=== PATIENT | male | born 1985 | race Caucasian/White ===

== ENCOUNTER 2016-10-16 10:22 | Emergency (ER) | payer SELFPAY ==
[~2016-10-16] VITALS: Ht 172.7 cm; Wt 82.0 kg
[2016-10-16 12:25] VITALS: BP 146/80
== END 2016-10-16 13:11 | disposition home or self-care (01) ==
LOC: ER 13:07
DX: T53.5X1A Toxic effect of chlorofluorocarbons, accidental (unintentional), initial encounter (principal); R42 Dizziness and giddiness; Y92.89 Other specified places as the place of occurrence of the external cause; R06.02 Shortness of breath
CPT/HCPCS: 71010; 99283; Z7610